=== PATIENT | male | born 1995 ===

== ENCOUNTER 2017-12-17 21:27 | Emergency (ER) | payer OTHER ==
[2017-12-17 22:05] VITALS: BP 117/69; PULSE 88; RESP 16; TEMP 97.9; O2SAT 100
--- NOTE | 2017-12-17 23:04 | ED PDOC ---
HPI: General Adult Time Seen by Provider: 12/17/17 22:11 Chief Complaint (Nursing): Hip Pain History Per: Patient Additional Complaint(s): Pt. states earlier today he was at work. Reports that he was on a ladder approximately 5 feet high which broke spontaneously causing him to fall on his R side. Pt. states he injured his R hip, R knee, R leg. Also reports striking his head but did not lose consciousness nor does he have a headache. Denies N/V , numbness, tingling, other injury. Past Medical History Reviewed: Historical Data, Nursing Documentation, Vital Signs Vital Signs: Last Vital Signs Temp 97.9 F 12/17/17 22:02 Pulse 88 12/17/17 22:02 Resp 16 12/17/17 22:02 BP 117/69 12/17/17 22:02 Pulse Ox 100 12/17/17 23:10 - Medical History PMH: Denies: Asthma, Diabetes, HTN - Family History Family History: States: No Known Family Hx - Home Medications Home Medications: Ambulatory Orders Medication Instructions Recorded Acetaminophen with Codeine 1 each PO Q6 #10 tablet 09/14/15 [Acetaminophen-Cod #3 Tablet] Ibuprofen [Motrin] 600 mg PO Q8 PRN #21 tab 09/20/15 - Allergies Allergies/Adverse Reactions: Allergies Allergy/AdvReac Type Severity Reaction Status Date / Time shrimp Allergy ANAPHYLAXIS Verified 12/17/17 22:02 Review of Systems ROS Statement: Except As Marked, All Systems Reviewed And Found Negative Physical Exam - Physical Exam Appears: Positive for: Well, Non-toxic, No Acute Distress Head Exam: Positive for: ATRAUMATIC, NORMAL INSPECTION, NORMOCEPHALIC Skin: Positive for: Normal Color, Warm. Negative for: Rash Eye Exam: Positive for: Normal appearance, EOMI, PERRL. Negative for: Periorbital swelling, Periorbital tenderness ENT: Positive for: Normal ENT Inspection, TM Is/Are (no hemotympanum b/l) Neck: Positive for: Normal, Painless ROM Cardiovascular/Chest: Positive for: Chest Non Tender Pulses-Dorsalis Pedis (L): 2+ Pulses-Dorsalis Pedis (R): 2+ Gastrointestinal/Abdominal: Positive for: Normal Exam, Soft. Negative for: Tenderness Back: Positive for: Normal Inspection. Negative for: L CVA Tenderness, R CVA Tenderness, Vertebral Tenderness Extremity: Positive for: Other (R lateral hip tenderness without deformity or pelvic tenderness; R knee without tenderness, swelling or deformity; FROM actively of R knee; R leg without tenderness, swelling or deformity) Neurologic/Psych: Positive for: Alert, Oriented, Gait (steady, unassisted) - ECG O2 Sat by Pulse Oximetry: 100 - Radiology X-Ray: Interpreted by Me (R hip/pelvis, R knee, R tib/fib xrays) X-Ray Interpretation: No Acute Disease - Progress ED Course And Treament: Motrin PO, R hip/knee/leg x-rays ordered. Disposition - Clinical Impression Clinical Impression: Contusion of hip, Knee contusion, Head injury - Patient ED Disposition Is Patient to be Admitted: No - Disposition Referrals: Madalyn Soto [Outside] Opal Davenport MD [Staff Provider] - Disposition: Routine/Home Disposition Time: 23:08 Condition: STABLE Additional Instructions: Follow up with PMD for further evaluation. Return to ED immediately if symptoms worsen. Instructions: Contusion (DC), Minor Head Injury (DC) Forms: Madalyn Abdi ([place])
--- NOTE | 2017-12-18 09:21 | RAD ---
PROCEDURE: Right Hip Radiographs. HISTORY: trauma COMPARISON: None. FINDINGS: BONES: Normal. No fracture. JOINTS: Normal. SOFT TISSUES: Normal. OTHER FINDINGS: Right hemipelvic phlebolith IMPRESSION: Normal radiographs of right hip.
--- NOTE | 2017-12-18 09:22 | RAD ---
PROCEDURE: Radiographs of the right tibia and fibula. HISTORY: trauma COMPARISON: None available. TECHNIQUE: Frontal and lateral views obtained. FINDINGS: BONES: No fracture or destructive lesion. JOINT SPACES: Unremarkable. OTHER FINDINGS: None. IMPRESSION: Unremarkable radiographs of the right tibia and fibula.
--- NOTE | 2017-12-18 09:22 | RAD ---
PROCEDURE: Right Knee Radiographs. HISTORY: trauma COMPARISON: None. FINDINGS: BONES: Normal. No fracture. JOINTS: Normal. No osteoarthritis. JOINT EFFUSION: None. OTHER FINDINGS: Bandaging over distal thigh IMPRESSION: Normal radiographs of the right knee.
== END 2017-12-17 23:54 | disposition home or self-care (01) ==
LOC: H.ER 21:27
DX: S70.11XA Contusion of right thigh, initial encounter (principal); S09.90XA Unspecified injury of head, initial encounter; S80.01XA Contusion of right knee, initial encounter; W11.XXXA Fall on and from ladder, initial encounter; Y99.0 Civilian activity done for income or pay